=== PATIENT | male | born 1980 | race African-American/Black ===

== ENCOUNTER 2021-07-31 19:31 | Emergency (ER) | payer SELFPAY ==
[~2021-07-31] VITALS: Ht 188 cm; Wt 109.0 kg
[2021-07-31 20:06] VITALS: BP 137/90
== END 2021-08-01 00:25 | disposition home or self-care (01) ==
LOC: ER 19:31
DX: Z46.6 Encounter for fitting and adjustment of urinary device (principal); G82.20 Paraplegia, unspecified; Z99.3 Dependence on wheelchair
CPT/HCPCS: 99281; Z7610